=== PATIENT | female | born 1960 | race Caucasian/White ===

== ENCOUNTER 2018-12-03 05:30 | Day surgery (SDC) | payer OTHER ==
[~2018-12-03 05:30] MED LIST: CEFAZOLIN 2 GM/50 ML (PMX) 50 ML IVPB
[2018-12-03] MEDS: SOD CHLORIDE 0.9% 1,000 ML IV (06:21)
[2018-12-03] MEDS ORDERED: SEVOFLURANE 15 MIN (07:00)
[2018-12-03] MEDS: BUPIVACAINE 0.25% (MPF) 30 ML INJ (07:57)
[2018-12-03] MEDS ORDERED: PROPOFOL 20 ML (08:10)
[2018-12-03] MEDS ORDERED: ROCURONIUM 50 MG INJ (08:10)
[2018-12-03] MEDS ORDERED: MIDAZOLAM 1 MG/ML 2 ML INJ (08:10)
[2018-12-03] MEDS ORDERED: FENTAnyl 50 MCG/ML VIAL (08:10)
[2018-12-03] MEDS ORDERED: CEFAZOLIN 1 GM INJ (08:10)
[2018-12-03] MEDS ORDERED: ROPIVACAINE 0.5 % 30 ML VIAL (08:11)
[2018-12-03] MEDS ORDERED: DIPHENHYDRAMINE 50 MG INJ IV (08:30)
[2018-12-03] MEDS ORDERED: FENTAnyl 50 MCG/ML VIAL IV ×3 (08:30)
[2018-12-03] MEDS ORDERED: LABETALOL HCL 20MG INJ IV (08:30)
[2018-12-03] MEDS ORDERED: hydrALAzine 20 MG INJ IV (08:30)
[2018-12-03] MEDS ORDERED: HYDROmorphONE 1 MG/5 ML IV SYRINGE IV (08:30)
[2018-12-03] MEDS ORDERED: METOCLOPRAMIDE 10 MG INJ IV (08:30)
[2018-12-03] MEDS ORDERED: MEPERIDINE 25 MG INJ IV (08:30)
[2018-12-03] MEDS ORDERED: EPHEDrine 25 MG/5 ML SYG IV (08:30)
[2018-12-03] MEDS ORDERED: ONDANSETRON 4 MG INJ IV (08:30)
[2018-12-03] MEDS ORDERED: DEXAMETHASONE 4 MG/ML 5 ML INJ (08:49)
[2018-12-03] MEDS ORDERED: SUGAMMADEX SODIUM 200 MG/2 ML VIAL IV (08:49)
[2018-12-03] MEDS ORDERED: KETOROLAC 30 MG INJ (08:49)
[2018-12-03] MEDS ORDERED: METOCLOPRAMIDE 10 MG INJ (08:49)
[2018-12-03] MEDS ORDERED: ONDANSETRON 4 MG INJ (08:49)
[2018-12-03] MEDS: HYDROmorphONE 1 MG/5 ML IV SYRINGE IV ×3 (10:15→10:29)
[2018-12-03] MEDS: IBUPROFEN 800 MG TAB PO (10:35)
== END 2018-12-03 12:45 | disposition home or self-care (01) ==
LOC: SDS 05:30
DX: K80.10 Calculus of gallbladder with chronic cholecystitis without obstruction (principal)
CPT/HCPCS: 47562; 88304